=== PATIENT | male | born 1955 | race American Indian/Alaskan Native ===

== ENCOUNTER 2020-08-19 15:18 | Outpatient (CLI) | payer BC, MEDICARE ==
--- NOTE | 2020-08-19 16:41 | XRay Report ---
BILATERAL KNEES STANDING ONE VIEW INDICATION / CLINICAL INFORMATION: pain in unspecified knee. COMPARISON: None available. FINDINGS: Moderate narrowing of the lateral compartment of the right knee with mild medial joint space narrowin g bilaterally. No other significant skeletal abnormality Signer Name: Baltazar Hernandez MD FACR Signed: 08/19/2020 4:36 PM Workstation Name: [id number]
--- NOTE | 2020-08-19 16:45 | XRay Report ---
RIGHT ANKLE 3 VIEWS INDICATION / CLINICAL INFORMATION: Right ankle pain and jionts of right foot. COMPARISON: None available. FINDINGS: Degenerative change, with hypertrophic spurring of the medial malleolus and the adjacent talus. No fr acture or other acute abnormality. Signer Name: Cecil Ledesma MD Signed: 08/19/2020 4:41 PM Workstation Name: [id number]
== END 2020-08-19 15:19 | disposition home or self-care (01) ==
LOC: XRAY 15:18
PROVIDERS: ATTEND Orthopaedic Surgery
DX: M19.071 Primary osteoarthritis, right ankle and foot (principal); M17.0 Bilateral primary osteoarthritis of knee; M77.8 Other enthesopathies, not elsewhere classified
CPT/HCPCS: 73565